=== PATIENT | male | born 1985 | race Two or more races ===

== ENCOUNTER 2016-11-17 12:48 | Emergency (ER) | payer SELFPAY ==
[~2016-11-17] VITALS: Ht 162.6 cm; Wt 81.6 kg
[2016-11-17] MEDS ORDERED: FLUORESCEIN OPHTH TEST STRIP. OD ONE (13:00)
[2016-11-17] MEDS ORDERED: EYE-STREAM OPHTH SOLUTION 120 ML BOTTLE. OD ONE (13:00)
[2016-11-17] MEDS ORDERED: TETRACAINE 0.5% OPHTH SOLUTION 4ML BOTTLE. OD ONE (13:00)
--- NOTE | 2016-11-17 13:04 | PHYS DOC ---
Past Medical History Past Medical History: No Pertinent History Past Surgical History: No Surgical History Smoking: Cigarettes Adult General Chief Complaint Chief Complaint: EYE PROBLEMS HPI HPI Patient is a 31 year old male presents emergency department stating that he was using a nail can when he went to place an nail and it came off of the object he was kneeling a flipped up and hit him in the right eye. He states that his vision is blurry. He does not have any foreign bodies noted from the eye area. It does appear to be very red and irritated. Patient is unsure when his last tetanus immunization occurred. Patient denies any loss of consciousness. Review of Systems Review of Systems Constitutional: Denies fever or chills [] Eyes: Denies change in visual acuity, C/o redness, and pain to the right eye HENT: Denies nasal congestion or sore throat [] Respiratory: Denies cough or shortness of breath [] Cardiovascular: No additional information not addressed in HPI [] GI: Denies abdominal pain, nausea, vomiting, bloody stools or diarrhea [] : Denies dysuria or hematuria [] Musculoskeletal: Denies back pain or joint pain [] Integument: Denies rash or skin lesions [] Neurologic: Denies headache, focal weakness or sensory changes [] Current Medications Current Medications Current Medications Medications (Trade) Dose Ordered Sig/Ayesha Start Time Stop Time Status Last Admin Dose Admin Eye Irrigation Solution (Eye-Stream) 120 ml 1X ONCE 11/17/16 13:00 11/17/16 13:01 DC 11/17/16 13:26 120 ML Fluorescein Sodium (Ful-Marissa) 1 strip 1X ONCE 11/17/16 13:00 11/17/16 13:01 DC 11/17/16 13:25 1 STRIP Tetracaine HCl (Tetracaine) 1 drop 1X ONCE 11/17/16 13:00 11/17/16 13:01 DC 11/17/16 13:25 1 DROP Allergies Allergies Allergies Coded Allergies Type Severity Reaction Last Updated Verified No Known Drug Allergies 11/17/16 No Physical Exam Physical Exam Constitutional: Well developed, well nourished, no acute distress, non-toxic appearance. [] HENT: Normocephalic, atraumatic, bilateral external ears normal, oropharynx moist, no oral exudates, nose normal. [] Eyes: PERRLA, EOMI, conjunctiva red with no discharge noted from the area. Neck: Normal range of motion, no tenderness, supple, no stridor. [] Cardiovascular:Heart rate regular rhythm, no murmur [] Lungs & Thorax: Bilateral breath sounds clear to auscultation [] Skin: Warm, dry, no erythema, no rash. [] Back: No tenderness Extremities: No tenderness, no cyanosis, no clubbing, ROM intact, no edema. [] Neurologic: Alert and oriented X 3, normal motor function, normal sensory function, no focal deficits noted. [] Psychologic: Affect normal, judgement normal, mood normal. [] EKG EKG [] Radiology/Procedures Radiology/Procedures [] Course & Med Decision Making Course & Med Decision Making Pertinent Labs and Imaging studies reviewed. (See chart for details) Tetracaine was placed into the right eye with 2 drops. Fluorescein was used with small amount of uptake noted at the 1:00 area. Patient eyes was irrigated with normal saline. Patient will be discharged home with eyedrops with recommendations to follow-up with ophthalmology in the next 24-48 hours. Patient was provided with signs and symptoms to return back to emergency department. Patient agrees with discharge instructions treatment regimens and follow-up recommendations. He'll be provided with hydrocodone for severe pain and discomfort he was instructed this medication will cause drowsiness do not take any be alert and oriented. Otherwise he may take ibuprofen 800 mg every 8 hours with food. Stop taking few develop an upset stomach. [] Dragon Disclaimer Dragon Disclaimer This electronic medical record was generated, in whole or in part, using a voice recognition dictation system. Departure Departure Impression: Primary Impression: Corneal abrasion Disposition: 01 HOME, SELF-CARE Condition: STABLE Referrals: Souleymane ALY MD Patient Instructions: Eye - Corneal Abrasion, [id number] Additional Instructions: Activity as tolerated. Medications as prescribed. Ibuprofen 800 mg every 8 hours with food stop taking few develop an upset stomach. Hydrocodone will cause drowsiness do not take any be alert and oriented. Eyedrops as prescribed. It's advisable for you to wear safety glasses whenever at work. Follow-up with ophthalmology in the next 24-48 hours. Return back to emergency prior signs symptoms of become worse. Scripts Hydrocodone/Apap 5-325 ([place] 5-325 Tablet)1 Each Tablet1 Tab PO PRN Q6HRS PRN PAIN #10 TAB Prov:FELECIA AGUIRRE APRN 11/17/16 Ofloxacin (Ocuflox)5 Ml Drops1-2 Drop RIGHTEYE BID #[address] in the right eye for the next 7 days Prov:FELECIA AGUIRRE APRN 11/17/16 FELECIA AGUIRRE APRN Nov 17, 2016 13:04
[2016-11-17 13:05] VITALS: BP 129/95
[2016-11-17] MEDS ORDERED: OFLO5DRO RIGHTEYE (13:40)
[2016-11-17] MEDS ORDERED: HYDR-971 PO (13:40)
== END 2016-11-17 14:00 | disposition home or self-care (01) ==
LOC: ER 12:48
DX: S05.01XA Injury of conjunctiva and corneal abrasion without foreign body, right eye, initial encounter (principal); F17.210 Nicotine dependence, cigarettes, uncomplicated; W22.8XXA Striking against or struck by other objects, initial encounter; Y93.89 Activity, other specified; Y92.89 Other specified places as the place of occurrence of the external cause; Y99.8 Other external cause status
CPT/HCPCS: 99283